=== PATIENT | male | born 1950 | race Caucasian/White ===

== ENCOUNTER 2024-01-05 07:29 | Inpatient (IN) ==
--- NOTE | 2023-12-28 09:03 | PAT Medication Instructions ---
Medication Instructions Date of Service December 28, 2023 Home Medications amlodipine 5 mg tablet 5 mg PO QAM ascorbic acid (vitamin C) 1,000 mg tablet (Vitamin C) 1 g PO QAM aspirin 81 mg capsule 81 mg PO HS atorvastatin 40 mg tablet 40 mg PO HS cholecalciferol (vitamin D3) 50 mcg (2,000 unit) capsule (Vitamin D3) 50 mcg PO HS finerenone 10 mg tablet (Kerendia) 10 mg PO QAM glimepiride 2 mg tablet 2 mg PO BID lisinopril 40 mg tablet 40 mg PO QAM metformin 850 mg tablet 850 mg PO BID Ocuvite Adult 50 Plus 1 cap PO DAILY ASK your prescriber and surgeon aspirin 81 mg capsule 81 mg PO HS finerenone 10 mg tablet (Kerendia) 10 mg PO QAM STOP taking 2 weeks before surgery (or as soon as possible if surgery is within 2 weeks) Ocuvite Adult 50 Plus 1 cap PO DAILY DO NOT take the morning of surgery ascorbic acid (vitamin C) 1,000 mg tablet (Vitamin C) 1 g PO QAM glimepiride 2 mg tablet 2 mg PO BID lisinopril 40 mg tablet 40 mg PO QAM metformin 850 mg tablet 850 mg PO BID Take morning of surgery With a small sip of water, OTHERWISE NOTHING TO EAT OR DRINK AFTER MIDNIGHT: amlodipine 5 mg tablet 5 mg PO QAM Take evening before surgery atorvastatin 40 mg tablet 40 mg PO HS cholecalciferol (vitamin D3) 50 mcg (2,000 unit) capsule (Vitamin D3) 50 mcg PO HS glimepiride 2 mg tablet 2 mg PO BID metformin 850 mg tablet 850 mg PO BID Other Notes If you have any questions please call us at [phone] or [phone] or [phone] or [phone]
--- NOTE | 2023-12-29 09:21 | Anesthesiology Consultation ---
Date of Service December 29, 2023 Assessment & Plan (1) Encounter for pre-operative examination: - Check BSG AM DOS - Infectious disease screening: Per assessment on 12/29/23: No known recent infectious disease contacts or current infectious disease symptoms. - S/P MRI lumbar spine (09/10/23): MAC at [facility] - PCP visit (12/28/23): "Cleared for back surgery provided preoperative testing is normal." > Preop testing -12/2023 done unremarkable. Chart Review Chart Review: Acceptable Risk for Surgery and Patient seen in Pre Admission Testing Teaching & Discussion Pre-Anesthesia Teaching/Discussion Notes: Instructed NPO after midnight before surgery,except medications with 15 cc of water. Medication instructions provided according to the PAT guidelines. History Surgery Operation Date: 01/05/24 11:25 Proposed Procedures p L1-L5 Decompression and Fusion, Possible L1-L2 - Reese Schaffer DO Height/Weight Height: 5 ft 11 in Weight: 114.6 kg Allergies Allergy/AdvReac Type Severity Reaction Status Date / Time No Known Allergies Allergy Verified 12/28/23 07:48 Medications Home Medications Medication Instructions Recorded Confirmed Last Taken amlodipine 5 mg tablet 5 mg PO QAM 08/26/23 12/28/23 09/10/23 04:30 ascorbic acid (vitamin C) 1,000 mg 1 g PO QAM 08/26/23 12/28/23 09/09/23 05:00 tablet (Vitamin C) aspirin 81 mg capsule 81 mg PO HS 08/26/23 12/28/23 09/09/23 17:00 atorvastatin 40 mg tablet 40 mg PO HS 08/26/23 12/28/23 09/09/23 17:00 cholecalciferol (vitamin D3) 50 50 mcg PO HS 08/26/23 12/28/23 09/09/23 17:00 mcg (2,000 unit) capsule (Vitamin D3) finerenone 10 mg tablet (Kerendia) 10 mg PO QAM 08/26/23 12/28/23 09/09/23 05:00 glimepiride 2 mg tablet 2 mg PO BID 08/26/23 12/28/23 09/09/23 17:00 lisinopril 40 mg tablet 40 mg PO QAM 08/26/23 12/28/23 09/10/23 04:30 metformin 850 mg tablet 850 mg PO BID 09/10/23 12/28/23 09/09/23 17:00 fwslpxks-kge-zmejs7 250 mg-dha 90 1 cap PO DAILY 09/10/23 12/28/23 09/09/23 17:00 mg-epa 160 pz-wfgz-cuoe-zeax capsule (Ocuvite Adult 50 Plus) Past Medical History Medical History Chronic kidney disease, stage 3 Follows with Carla OKEEFE and Dr. Sanchez/Dawna Chronic lower back pain Diabetes mellitus, type 2 History of depression History of spinal fracture L1-L4 (1989) Treated with bedrest x weeks, "healed"/no surgical intervention needed Hx of basal cell carcinoma Hyperlipidemia Hypertension Neurogenic claudication due to lumbar spinal stenosis Exercise / Class Metabolic Activity III < 4 Walking/Shop/Light housework (one FS: No CP, + SOB) Past Surgical History Surgical History History of amputation of toe x3 left toes History of bilateral knee replacement (2010) R/L History of cardiac cath (2006) Failed stress test > no stents History of carpal tunnel surgery of left wrist w/ulnar nerve decompression History of esophagogastroduodenoscopy (EGD) History of Mohs micrographic surgery for skin cancer Hx of bilateral cataract extraction (2021) Hx of colonoscopy Hx of wisdom tooth extraction Past Anesthesia History No Hx of Anesthesia Complications and No Family Hx of Anesthesia Complications History of PONV No Hx of PONV and No Hx of Motion Sickness Social History Smoking Status: Current every day smoker Smoking cigarettes per day: 1 PPD Do You Dip or Chew Tobacco: No Hx Alcohol Use: No Hx Substance Use: No substance use type: does not use Review of Systems Patient denies chest pain, shortness of breath, fever, chills, cough, wheezing, palpitations. Physical Exam Vital Signs BP 152/78 P 71 TEMP WNL SP02 95%RA RESP 18 Physical Full cervical extension range of motion. Full TMJ range of motion. TMD >3.5 finger breaths Mallampati Score 3 Dentition: + missing teeth (sides/molars), upper front right crown, right lower side/left upper side "broken" Lungs: clear throughout to auscultation Cardiac: regular rate and rhythm, no murmurs noted Spine: normal Carotid arteries: negative bruit Extremities: no LE edema Thick neck Lab Results Anesthesia Preop Results Results Anesthesia Widget: PT 10.2 Seconds (9.0-12.0) 12/29/23 PTT 29 Seconds (21-31) 12/29/23 INR 0.9 (0.9-1.1) 12/29/23 Urine Color Yellow 12/29/23 Urine Appearance Clear (Clear) 12/29/23 Urine pH 5.5 (4.5-7.5) 12/29/23 Urine Specific [place] 1.024 (1.000-1.030) 12/29/23 Urine Protein 4+ (Negative) H 12/29/23 Urine Glucose (UA) Negative (Negative) 12/29/23 Urine Ketones Trace (Negative) H 12/29/23 Urine Blood Negative (Negative) 12/29/23 Urine Nitrite Negative (Negative) 12/29/23 Urine Bilirubin Negative (Negative) 12/29/23 Urine Urobilinogen Negative (Negative) 12/29/23 Urine Leukocyte Esterase Negative (Negative) 12/29/23 Urine WBC (Auto) 0-5 /hpf (0-5) 12/29/23 Urine RBC (Auto) 0-2 /hpf (0-2) 12/29/23 Urine Hyaline Casts (Auto) 0-2 /lpf (0-2) 12/29/23 Urine Epithelial Cells (Auto) 0-2 /hpf (0-2) 12/29/23 Urine Bacteria (Auto) None Seen (None Seen) 12/29/23 Blood Type O Negative 12/29/23 Antibody Screen NEGATIVE 12/29/23 Testing Laboratory Results 12/10/23 WBC 10.49 H/H 12.5/37.0 PLATELETS 270 SODIUM 138 POTASSIUM 4.4 CHLORIDE 108 CO2 25.4 BUN 24.7 CREATININE 1.33 GLUCOSE 146 A1C 6.4% Electrocardiogram Date: 12/29/23 NSR with sinus arrhythmia at 72bpm. Low voltage QRS. Septal infarct, age undetermined. No significant change compared to 09/25/2010 per deputy sheriff/investigator comparison. Chest X-Ray Date: 12/29/23 FINDINGS: PA and lateral chest radiographs are compared to study dated 09/25/2010. The heart is top normal in size noting atherosclerotic calcification of the thoracic aorta. There is mild bibasilar atelectasis. The lungs and pleural spaces are clear. There is no pneumothorax. The skeletal structures are osteopenic. There is chronic deformity of the right-sided ribs. IMPRESSION: No active disease in the chest.
[~2024-01-05 07:29] MED LIST: ATROPINE SULFATE 0.1 MG/ML 10ML SYR IV PRN; HYDROmorphone INJ 2 MG/ML SYR/VIAL IV PRN; ONDANSETRON INJ 2 MG/ML 2 ML VIAL IV PRN; ePHEDrine sulfate 50 MG/ML AMP IV PRN
[2024-01-05] MEDS: GABAPENTIN 300 MG CAP PO SCH (08:10)
[2024-01-05] MEDS: LR 60ML/HR IV SCH (08:11)
[2024-01-05] MEDS: CeleBREX 200 MG CAP PO SCH (08:11)
[2024-01-05] MEDS: LR 15ML/HR IV SCH (08:50)
[2024-01-05] MEDS ORDERED: fentaNYL citrate PF 100 MCG/2 ML VIAL ONE ×2 (08:53→11:00)
--- NOTE | 2024-01-05 08:58 | History & Physical Bridge Note ---
Date of Service January 05, 2024 History & Physical Bridge Note I have examined the patient, reviewed the History & Physical and in the interval since the performance of the History & Physical I have noted the following changes of clinical significance: no changes noted
--- NOTE | 2024-01-05 08:59 | History & Physical Report ---
Date of Service January 05, 2024 Assessment & Plan (1) Neurogenic claudication due to lumbar spinal stenosis: Plan: L1-L5 decompression and fusion possible L1-L2 History of Present Illness Chief Complaint: Back and bilateral leg pain Primary Care Provider: Rolando Moura DO This is a 73-year-old male who presents with chronic persistent back and leg pain after failing course of nonoperative care is here for surgical invention. Allergies Allergy/AdvReac Type Severity Reaction Status Date / Time No Known Allergies Allergy Verified 01/05/24 08:05 Home Medications Medication Instructions Recorded Confirmed Type amlodipine 5 mg tablet 5 mg PO QAM 08/26/23 01/05/24 History ascorbic acid (vitamin C) 1,000 mg 1 g PO QAM 08/26/23 01/05/24 History tablet (Vitamin C) aspirin 81 mg capsule 81 mg PO HS 08/26/23 01/05/24 History atorvastatin 40 mg tablet 40 mg PO HS 08/26/23 01/05/24 History cholecalciferol (vitamin D3) 50 50 mcg PO HS 08/26/23 01/05/24 History mcg (2,000 unit) capsule (Vitamin D3) finerenone 10 mg tablet (Kerendia) 10 mg PO QAM 08/26/23 01/05/24 History glimepiride 2 mg tablet 2 mg PO BID 08/26/23 01/05/24 History lisinopril 40 mg tablet 40 mg PO QAM 08/26/23 01/05/24 History metformin 850 mg tablet 850 mg PO BID 09/10/23 01/05/24 History pwxdzufn-ztd- 250 mg-dha 90 1 cap PO DAILY 09/10/23 01/05/24 History mg-epa 160 vr-jedw-yidp-zeax capsule (Ocuvite Adult 50 Plus) Past Med/Surg History Problem List Neurogenic claudication due to lumbar spinal stenosis Encounter for pre-operative examination Medical History Chronic kidney disease, stage 3 Follows with Carla OKEEFE and Dr. Sanchez/Dawna Chronic lower back pain Diabetes mellitus, type 2 History of depression History of spinal fracture L1-L4 (1989) Treated with bedrest x weeks, "healed"/no surgical intervention needed Hx of basal cell carcinoma Hyperlipidemia Hypertension Neurogenic claudication due to lumbar spinal stenosis Surgical History History of amputation of toe x3 left toes History of bilateral knee replacement (2010) R/L History of cardiac cath (2006) Failed stress test > no stents History of carpal tunnel surgery of left wrist w/ulnar nerve decompression History of esophagogastroduodenoscopy (EGD) History of Mohs micrographic surgery for skin cancer Hx of bilateral cataract extraction (2021) Hx of colonoscopy Hx of wisdom tooth extraction Social History Smoking Status: Current every day smoker Tobacco Type: Cigarettes Cigarettes Per Day: 1 PPD; Second Hand Exposure: No; Do You Dip or Chew Tobacco: No; Tobacco Cessation Education Requested by Patient: No Hx Alcohol Use: No Hx Substance Use: No Preferred Language: Niuean Communication Ability: Effective Scrap Cutter Required: No Beliefs That Will Affect Care: None Current Living Situation: Spouse Other Information That Helps Us Care for You: No Feels Safe at Home: Yes Safety Concerns: Feels Safe At This Time Assistive Devices: Glasses Physical Exam Physical Exam: Patient is alert and oriented heart regular in rhythm lungs clear Results & Data Results & Data Vital Signs (Past 12 Hours) Vital Signs Temp Pulse Resp BP Pulse Ox O2 Del Method 01/05/24 08:11 Room Air 01/05/24 07:58 36.7 C 73 20 168/74 H 97 Room Air
[2024-01-05] MEDS: ceFAZolin 2000MG 2,000 MG/15 ML SYR IV SCH ×2 (09:35→17:12)
[2024-01-05] MEDS: BUPIVACAINE/EPINEPHRINE 0.25% 1:200,000 30 ML VIAL ONE (10:25)
[2024-01-05] MEDS ORDERED: DEXAMETHASONE SOD INJ 4 MG/ML VIAL ONE (10:32)
[2024-01-05] MEDS ORDERED: ROCURONIUM BROMIDE 10 MG/ML 5 ML VIAL IV ONE (10:32)
[2024-01-05] MEDS ORDERED: ONDANSETRON INJ 2 MG/ML 2 ML VIAL ONE (10:32)
[2024-01-05] MEDS ORDERED: LIDOCAINE 2% 2 ML VIAL/AMP(20MG/ML) INFIL ONE (10:32)
[2024-01-05] MEDS ORDERED: PROPOFOL IV EMULSION 10 MG/ML 20 ML VIAL IV ONE (10:32)
[2024-01-05] MEDS ORDERED: ePHEDrine sulfate 50 MG/ML AMP ONE (10:35)
[2024-01-05] MEDS: FLOSEAL HEMOSTATIC MATRIX 10ML TOP ONE (11:43)
[2024-01-05] MEDS ORDERED: SUGAMMADEX SODIUM 200 MG/2 ML VIAL IV ONE (11:46)
[2024-01-05] MEDS: ceFAZolin 330 MG/ML 1 GM VIAL ONE (11:50)
--- NOTE | 2024-01-05 11:57 | Operative Report ---
Post Operative Report Pre & Post Diagnosis Operation Date: 01/05/24 09:35 Pre-Op Diagnosis: Neurogenic claudication due to lumbar spinal stenosis Lumbar disc herniation Post-Op Diagnosis: same I identified the patient and participated in the time-out.: Yes Procedure Operation Date: 01/05/24 09:35 Procedure: #1 lumbar decompression with bilateral medial facetectomies and foraminotomies L1-L2, L2-L3, L3-L4 and L4-L5. #2 posterior spinal fusion L1-L2. #3 placed posterior instrumentation L1-L2. #4 interbody fusion L1-L2. #5 history Spira 9 x 26 mm cage at L1-L2. #6 placement locally harvested morselized autograft in the posterior gutters. #7 placement infuse collagen sponge combined with Koros bone graft in the posterior lateral gutters and Morpheus interbody space. Surgeon Reese Schaffer, DO Staffing And Scheduling Coordinator Farideh Connell Estimated Blood Loss 550 Findings See Below The patient is 5 foot 11 weighing over 113 kg with a BMI in excess of 34. Patient's body was did contribute to significant technical difficulty with positioning exposure and the procedure itself adding at least 50% increased operative time. Specimens None Indications This is a 73-year-old male presents above-mentioned diagnosis of failed course of nonoperative care is here for surgical invention. Description of Procedure Patient was met with identified informed consent obtained. Patient was then taken to the operative suite underwent patient placed in a prone position on the Adriano table on top of the Ilir frame. All bony prominences well-padded eyes inspected to ensure no external pressure placed upon the. This point the lumbar spine was prepped and draped in a sterile fashion. Sharp dissection with the assistance of Bovie cautery performed down to and exposing the lamina and facets at L1-L2 L3-L4-L5 bilaterally. I then performed a complete laminectomy of L4 including bilateral medial facetectomies and foraminotomies followed by laminectomy of L3 with bilateral medial facetectomies and foraminotomies followed by L2 with bilateral medial facetectomies and foraminotomies and lastly L1 with bilateral medial facetectomies and foraminotomies addressing severe spinal stenosis as well as a massive disc herniation at L1-L2. Pedicle screws were then placed at L1-L2 bilaterally with assistance of fluoroscopy purposes nando placed. A complete facetectomy was then performed on the right and by way the transforaminal portion right a discectomy of L1-L2 was performed endplates guided to subcortical bleeding bone and a 9 x 26 mm Spira cage filled with Morpheus bone graft tapped in position. The rods then compressed locked in final position bilaterally. The transition processes of L1-L2 burred to subcortical bleeding bone. Infuse collagen sponge combined with Koros and locally harvested morselized graft placed in posterior gutters. 15 round GERMAN drain inserted. The incision was then closed with 1 Vicryl the fascia 2-0 Vicryl subcutaneously and 4 Monocryl for fascial closure. Steri-Strips sterile dressing placed. Patient waken taken to PACU in stable condition. Please note spinal cord monitoring was utilized at the procedure no changes noted. Farideh Connell was present out the entire surgeon while the patient positioning complex portion of the surgery and final skin closure. Im ordering 20 grams of Triple [place] Collagen Powder ([id number] [id number]) to treat an incision wound that was caused by a spine procedure. The incision is approximately 2 cm(W) x 4 cm(L) into the joint (D) in size and is a full thickness wound. Triple [place] collagen comes in 1 gram packets so 20 packets were ordered. Given the size of the wound, with light to moderate exudate I chose to order a 20 day supply. The patient will be provided instructions for proper application of the collagen wound kit. The patient will be asked to apply the collagen powder daily and then cover it with sterile dressings dispensed. Collagen was selected as I expect the collagen to attract monocytes and fibroblasts, act as a sacrificial substrate for MMPs, and ultimately proved a matrix for tissue and vessel growth. The collagen will act as a primary dressing in this scenario. It is medically necessary for proper healing of these wounds to improve bioavailability and contact with each wound surface, this is also to help prevent infection of wounds and promote healing ultimately leading to a better healing outcome and limit the risk of infection. I attest to the content of the Intraoperative Record and any orders documented therein. Any exceptions are noted below.
[2024-01-05] MEDS: HYDROmorphone INJ 0.5 MG/0.5 ML SYR ONE (12:44)
[2024-01-05] MEDS ORDERED: ATROPINE SULFATE 0.1 MG/ML 10ML SYR IV PRN (12:47)
[2024-01-05] MEDS ORDERED: ONDANSETRON INJ 2 MG/ML 2 ML VIAL IV PRN ×2 (12:47→14:07)
[2024-01-05] MEDS ORDERED: ePHEDrine sulfate 50 MG/ML AMP IV PRN (12:47)
--- NOTE | 2024-01-05 12:56 | Anesthesiology Progress Note ---
Date of Service January 05, 2024 Anesthesia Post Procedure Vital Signs Vital Signs: Temp Pulse Resp BP Pulse Ox O2 Del Method 01/05/24 08:11 Room Air 01/05/24 07:58 36.7 C 73 20 168/74 H 97 Room Air Pain Intensity Bilateral Lower Back: Pain Intensity: 1 Transfer of Care Handoff Completed per policy Notes Mental Status: alert / awake / arousable and participated in evaluation Nausea / Vomiting: adequately controlled Pain: adequately controlled Airway Patency, RR, SpO2: stable & adequate BP & HR: stable & adequate Hydration State: stable & adequate Anesthetic Complications: no major complications apparent and Pt Satisfied with anesthetic care
[2024-01-05] MEDS: HYDROmorphone INJ 2 MG/ML SYR/VIAL IV PRN (13:01)
[2024-01-05] MEDS ORDERED: LORazepam 0.5 MG in SYRINGE 0.25 ML IV PRN (14:07)
[2024-01-05] MEDS ORDERED: diphenhydrAMINE Capsule 25 MG CAP PO PRN (14:07)
[2024-01-05] MEDS ORDERED: METOCLOPRAMIDE HCL INJ 5 MG/ML 2 ML VIAL IV PRN (14:07)
[2024-01-05] MEDS ORDERED: traMADol HCL 50 MG TABLET PO PRN (14:07)
[2024-01-05] MEDS ORDERED: ONDANSETRON 4 MG OD TAB PO PRN (14:07)
[2024-01-05] MEDS ORDERED: ACETAMINOPHEN 500 MG TAB PO PRN (14:07)
[2024-01-05] MEDS ORDERED: bisacodyL 10 MG SUPP PR PRN (14:07)
[2024-01-05] MEDS ORDERED: HYDROmorphone INJ 1 MG/ML SYRINGE IV PRN (14:07)
[2024-01-05] MEDS ORDERED: PROMETHAZINE HCL 12.5 MG in SODIUM CHLORIDE 0.9% 50 ML IV PRN (14:07)
[2024-01-05] MEDS ORDERED: SOD PHOSPHATE/SOD BIPHOSPHATE ENEMA 132 ML BTL PR PRN (14:07)
[2024-01-05] MEDS ORDERED: HYDROmorphone INJ 0.5 MG/0.5 ML SYR IV PRN (14:07)
[2024-01-05] MEDS ORDERED: DO NOT ADMINISTER FLU VACCINE PRN (14:07)
[2024-01-05] MEDS ORDERED: DO NOT ADMINISTER PNEUMOCOCCAL VACCINE PRN (14:07)
[2024-01-05] MEDS ORDERED: ALUMINUM/MAGNESIUM SUSP 30 ML UDC PO PRN (14:07)
[2024-01-05] MEDS ORDERED: ACETAMINOPHEN 1,000 MG/100 ML VIAL IV PRN (14:07)
[2024-01-05] MEDS ORDERED: MAGNESIUM HYDROXIDE SUSP 30 ML UDC PO PRN (14:07)
[2024-01-05] MEDS ORDERED: FAMOTIDINE 20 MG TAB PO PRN (14:07)
[2024-01-05] MEDS ORDERED: LORazepam 0.5 MG TAB PO PRN (14:07)
[2024-01-05] MEDS ORDERED: NALOXONE HCL 0.4 MG/1 ML VIAL/CARP IV PRN (14:07)
[2024-01-05] MEDS ORDERED: hydrOXYzine HCl 25 MG TAB PO PRN (14:07)
[2024-01-05] MEDS ORDERED: PHARMACY GLYCEMIC MGMT CONSULT PRN (14:10)
[2024-01-05] MEDS: LANTUS PER UNIT CHARGE SC STA (14:26)
[2024-01-05] MEDS: LACTATED RINGER'S 1,000 ML IV SCH (14:27)
[2024-01-05] MEDS: INSULIN ASPART PER UNIT CHARGE SC SCH (14:29)
[2024-01-05] MEDS ORDERED: DEXTROSE 50% 50 ML SYRINGE IV PRN (14:30)
[2024-01-05] MEDS ORDERED: GLUCOSE 10 TAB/TUBE PO PRN (14:30)
[2024-01-05] MEDS ORDERED: CARBOHYDRATES FOR HYPOGLYCEMIA PO PRN (14:30)
[2024-01-05] MEDS ORDERED: GLUCOSE 40% GEL 15 GM TUBE PO PRN (14:30)
[2024-01-05] MEDS ORDERED: GLUCAGON FOR INJ 1 MG VIAL IM PRN (14:30)
--- NOTE | 2024-01-05 14:30 | Pharmacy Report ---
Pharmacy Glycemic Short Note 2 - Date of Service January 05, 2024 - Glycemic Short BSG Results (Last 24 hours): 01/05/24 01/05/24 07:54 12:14 POC Glucose 127 H 236 H OUTPATIENT ANTIDIABETIC REGIMEN: * Glimepiride 2 mg PO BID * Metformin 850 mg PO BID * HbA1c: 6.4% (12/29/23) ASSESSMENT: * 73 yo M admitted on 01/05/24 postoperatively following a spinal surgery with Dr. Schaffer. Pharmacy has been consulted to assist with inpatient glycemic management. Patient is a Type 2 diabetic as an outpatient. Please refer to outpatient regimen and most recent HbA1c above. * BSGs today have been 127-236 mg/dL. Appears to have received 4 mg IV Dexamethasone in the OR. Ordered 6 mg IV dexamethasone daily x 3 days starting tomorrow. Ordered a T2DM diet, will follow to see if patient tolerates. * Will start Novolog based on weight/stress of 3 with a one time basal dose of 0.2 units/kg. Reassess basal in the AM. PLAN FOR INPATIENT GLYCEMIC CONTROL: * Hold outpatient oral diabetes medications * Basal insulin * Lantus 25 units SC x 1 now stat * Bolus insulin * NovoLog per scale ACHS or Q6hrs while NPO * Goal Range: Low 110 mg/dL - High 140 mg/dL * Correction Factor: 15 mg/dL/unit * Nutritional / Prandial insulin per carb ratio of 1 unit per 5 grams CHO consumed
--- NOTE | 2024-01-05 14:50 | Fluoroscopy Report ---
FL lumbar spine 2-3V CLINICAL HISTORY: L1-L5 DECOMPRESSION AND FUSION POSSILBE L1-L2 TECHNIQUE: 2 views were obtained with the C-arm in the OR with the above procedure. Total fluoroscopy time was 29.3 seconds. Radiation dose was 26.70 mGy. Comparison: Comparison is made to MRI lumbar spine 09/10/2023 FINDINGS/IMPRESSION: Intraoperative images were obtained of L1-L2 decompression fusion. Please correlate with intraoperative fluoroscopy and operative report. ACT 112: Negative or not required by law. Electronically signed by: Sammy Mcdermott M.D. 01/05/2024 2:49 PM
--- NOTE | 2024-01-05 15:01 | Hospitalist Consultation ---
Date of Consultation January 05, 2024 History of Present Illness Reason for Consultation: Post-Operative Medical Management Requesting Physician: Reese Schaffer DO Attending Physician: Reese Schaffer DO Allergies Allergy/AdvReac Type Severity Reaction Status Date / Time No Known Allergies Allergy Verified 01/05/24 08:05 Home Medications Medication Instructions Recorded Confirmed Type amlodipine 5 mg tablet 5 mg PO QAM 08/26/23 01/05/24 History ascorbic acid (vitamin C) 1,000 mg 1 g PO QAM 08/26/23 01/05/24 History tablet (Vitamin C) aspirin 81 mg capsule 81 mg PO HS 08/26/23 01/05/24 History atorvastatin 40 mg tablet 40 mg PO HS 08/26/23 01/05/24 History cholecalciferol (vitamin D3) 50 50 mcg PO HS 08/26/23 01/05/24 History mcg (2,000 unit) capsule (Vitamin D3) finerenone 10 mg tablet (Kerendia) 10 mg PO QAM 08/26/23 01/05/24 History glimepiride 2 mg tablet 2 mg PO BID 08/26/23 01/05/24 History lisinopril 40 mg tablet 40 mg PO QAM 08/26/23 01/05/24 History metformin 850 mg tablet 850 mg PO BID 09/10/23 01/05/24 History abzcrztk-tel- 250 mg-dha 90 1 cap PO DAILY 09/10/23 01/05/24 History mg-epa 160 rn-xhos-bhjy-zeax capsule (Ocuvite Adult 50 Plus) oxycodone 5 mg tablet 5 mg PO Q6H PRN pain #30 tabs 01/05/24 Rx tramadol 50 mg tablet 50 mg PO Q6H PRN pain, moderate 01/05/24 Rx #30 tabs Patient History Medical History Chronic kidney disease, stage 3 Follows with Carla OKEEFE and Dr. Sanchez/Dawna Chronic lower back pain Diabetes mellitus, type 2 History of depression History of spinal fracture L1-L4 (1989) Treated with bedrest x weeks, "healed"/no surgical intervention needed Hx of basal cell carcinoma Hyperlipidemia Hypertension Neurogenic claudication due to lumbar spinal stenosis Surgical History History of amputation of toe x3 left toes History of bilateral knee replacement (2010) R/L History of cardiac cath (2006) Failed stress test > no stents History of carpal tunnel surgery of left wrist w/ulnar nerve decompression History of esophagogastroduodenoscopy (EGD) History of Mohs micrographic surgery for skin cancer Hx of bilateral cataract extraction (2021) Hx of colonoscopy Hx of wisdom tooth extraction Social History Smoking Status: Current every day smoker Tobacco Type: Cigarettes Cigarettes Per Day: 1 PPD; Second Hand Exposure: No; Do You Dip or Chew Tobacco: No; Tobacco Cessation Education Requested by Patient: No Hx Alcohol Use: No Hx Substance Use: No Preferred Language: Slovenian Communication Ability: Effective 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 Beliefs That Will Affect Care: None Current Living Situation: Spouse Other Information That Helps Us Care for You: No Feels Safe at Home: Yes Safety Concerns: Feels Safe At This Time Assistive Devices: Glasses Results & Data Results & Data Vital Signs (Past 12 Hours) Vital Signs Temp Pulse Pulse Resp BP Pulse Ox O2 Del Method 01/05/24 14:32 74 18 153/76 H 98 Nasal Cannula 01/05/24 14:07 36.4 C L 72 18 150/74 H 98 Nasal Cannula 01/05/24 13:45 69 16 147/65 H 97 Room Air 01/05/24 13:35 74 14 159/66 H 92 Room Air 01/05/24 13:25 36.5 C 67 14 152/62 H 94 Room Air 01/05/24 13:15 67 13 158/64 H 97 Nasal Cannula 01/05/24 13:05 66 14 157/68 H 96 Nasal Cannula 01/05/24 12:55 63 15 162/63 H 96 Nasal Cannula 01/05/24 12:45 67 20 169/72 H 98 Nasal Cannula 01/05/24 12:35 65 20 173/63 H 97 Nasal Cannula 01/05/24 12:25 66 16 159/85 H 97 Nasal Cannula 01/05/24 12:15 78 12 155/67 H 96 Nasal Cannula 01/05/24 12:09 36.8 C 80 14 192/72 H 94 Nasal Cannula 01/05/24 08:11 Room Air 01/05/24 07:58 36.7 C 73 20 168/74 H 97 Room Air O2 Flow Rate 01/05/24 14:32 2 01/05/24 14:07 2 01/05/24 13:45 01/05/24 13:35 01/05/24 13:25 01/05/24 13:15 2 01/05/24 13:05 2 01/05/24 12:55 2 01/05/24 12:45 2 01/05/24 12:35 2 01/05/24 12:25 4 01/05/24 12:15 4 01/05/24 12:09 4 01/05/24 08:11 01/05/24 07:58
--- NOTE | 2024-01-05 15:25 | Consultation ---
Date of Consultation January 05, 2024 Assessment & Plan (1) Neurogenic claudication due to lumbar spinal stenosis: (2) Diabetes mellitus, type 2: (3) Hyperlipidemia: (4) Hypertension: Plan Neurogenic claudication with lumbar spinal stenosis s/p L1-L5 decompression and fusion of L1-2 POD 0- further management including DVT ppx, diet, activities, pain management and disposition per primary team DM-2- Hold home antidiabetics. Glycemic pharmacist consulted by primary team. HTN- continue norvasc and lisinopril. Follow labs in am Tobacco abuse- recommended quitting. Continue nicoderm patch CKD- follow up labs in am DVT ppx- per primary team Dispo- per primary team Time spent- 50 mins History of Present Illness Requesting Physician: Dr Schaffer Reason for Consultation: Post op medical management Attending Physician: Reese Schaffer, DO History of Present Illness 73 year old male with h/o HTN, DM, Tobacco abuse, CKD, lumbar spinal stenosis who underwent L1-L5 decmpression and fusion by Dr Schaffer today. Hospitalist service was consulted for post operative management. Patient was seen and examined at bedside. States pain is controlled. No N/V. No fever or chills. No CP or SOB. Tolerating oral intake without issues. States he smokes upto 1 ppd and asking for nicotine patch. Does not drink alcohol. Denies any cardio pulmonary issues. Denies any history of VTE or bleeding. Tried to verify the medications but he did not know them and deferred to his . I called his over the phone but I was unable to reach. Allergies Allergy/AdvReac Type Severity Reaction Status Date / Time No Known Allergies Allergy Verified 01/05/24 08:05 Home Medications Medication Instructions Recorded Confirmed Type amlodipine 5 mg tablet 5 mg PO QAM 08/26/23 01/05/24 History ascorbic acid (vitamin C) 1,000 mg 1 g PO QAM 08/26/23 01/05/24 History tablet (Vitamin C) aspirin 81 mg capsule 81 mg PO HS 08/26/23 01/05/24 History atorvastatin 40 mg tablet 40 mg PO HS 08/26/23 01/05/24 History cholecalciferol (vitamin D3) 50 50 mcg PO HS 08/26/23 01/05/24 History mcg (2,000 unit) capsule (Vitamin D3) finerenone 10 mg tablet (Kerendia) 10 mg PO QAM 08/26/23 01/05/24 History glimepiride 2 mg tablet 2 mg PO BID 08/26/23 01/05/24 History lisinopril 40 mg tablet 40 mg PO QAM 08/26/23 01/05/24 History metformin 850 mg tablet 850 mg PO BID 09/10/23 01/05/24 History [id number] 250 mg-dha 90 1 cap PO DAILY 09/10/23 01/05/24 History mg-epa 160 [id number] capsule (Ocuvite Adult 50 Plus) oxycodone 5 mg tablet 5 mg PO Q6H PRN pain #30 tabs 01/05/24 Rx tramadol 50 mg tablet 50 mg PO Q6H PRN pain, moderate 01/05/24 Rx #30 tabs Patient History Medical History Chronic lower back pain Neurogenic claudication due to lumbar spinal stenosis History of spinal fracture L1-L4 (1989) Treated with bedrest x weeks, "healed"/no surgical intervention needed Chronic kidney disease, stage 3 Follows with Carla [facility]EEFE and Dr. Sanchez/Dawna Hx of basal cell carcinoma History of depression Diabetes mellitus, type 2 Hyperlipidemia Hypertension Surgical History History of bilateral knee replacement (2010) R/L History of Mohs micrographic surgery for skin cancer History of carpal tunnel surgery of left wrist w/ulnar nerve decompression History of amputation of toe x3 left toes History of esophagogastroduodenoscopy (EGD) Hx of colonoscopy Hx of bilateral cataract extraction (2021) Hx of wisdom tooth extraction History of cardiac cath (2006) Failed stress test > no stents Social History Smoking Status: Current every day smoker Tobacco Type: Cigarettes Cigarettes Per Day: 1 PPD; Second Hand Exposure: No; Do You Dip or Chew Tobacco: No; Tobacco Cessation Education Requested by Patient: No Hx Alcohol Use: No Hx Substance Use: No Preferred Language: Polish Communication Ability: Effective Senior Java Web Developer Required: No Beliefs That Will Affect Care: None Current Living Situation: Spouse Other Information That Helps Us Care for You: No Feels Safe at Home: Yes Safety Concerns: Feels Safe At This Time Assistive Devices: Glasses Review of Systems Review of Systems: All systems reviewed & are unremarkable except as noted in Subjective Physical Exam Physical Exam: General: Lying comfortably in bed, not in distress, on room air HEENT: EOMI, LEOLA, MMM Chest: Clear breath sounds bilaterally, no wheezes or crackles CVS: Regular rate and rhythm, normal heart sounds, no murmur Abdomen: Soft, non tender, not distended, normal bowel sounds Neuro: Awake, alert, oriented, conversing well, non focal Extremities: No edema Skin: Incision site covered with dressing, GERMAN drain with sanguineous output Raymundo with clear urine Results & Data Vital Signs (Past 12 Hours) Vital Signs Temp Pulse Pulse Resp BP Pulse Ox O2 Del Method 01/05/24 15:00 36.4 C L 73 16 154/73 H 97 Nasal Cannula 01/05/24 14:32 74 18 153/76 H 98 Nasal Cannula 01/05/24 14:07 36.4 C L 72 18 150/74 H 98 Nasal Cannula 01/05/24 13:45 69 16 147/65 H 97 Room Air 01/05/24 13:35 74 14 159/66 H 92 Room Air 01/05/24 13:25 36.5 C 67 14 152/62 H 94 Room Air 01/05/24 13:15 67 13 158/64 H 97 Nasal Cannula 01/05/24 13:05 66 14 157/68 H 96 Nasal Cannula 01/05/24 12:55 63 15 162/63 H 96 Nasal Cannula 01/05/24 12:45 67 20 169/72 H 98 Nasal Cannula 01/05/24 12:35 65 20 173/63 H 97 Nasal Cannula 01/05/24 12:25 66 16 159/85 H 97 Nasal Cannula 01/05/24 12:15 78 12 155/67 H 96 Nasal Cannula 01/05/24 12:09 36.8 C 80 14 192/72 H 94 Nasal Cannula 01/05/24 08:11 Room Air 01/05/24 07:58 36.7 C 73 20 168/74 H 97 Room Air O2 Flow Rate 01/05/24 15:00 1 01/05/24 14:32 2 01/05/24 14:07 2 01/05/24 13:45 01/05/24 13:35 01/05/24 13:25 01/05/24 13:15 2 01/05/24 13:05 2 01/05/24 12:55 2 01/05/24 12:45 2 01/05/24 12:35 2 01/05/24 12:25 4 01/05/24 12:15 4 01/05/24 12:09 4 01/05/24 08:11 01/05/24 07:58
[2024-01-05] MEDS ORDERED: hydrALAZINE HCL 20 MG/ML VIAL IV PRN (16:42)
[2024-01-05] MEDS: NICOTINE 21 MG/24 HR TDSY TD SCH (17:14)
[2024-01-05] MEDS ORDERED: GLIMEPIRIDE 2 MG TAB PO SCH (21:00)
[2024-01-05] MEDS ORDERED: metFORMIN HCL 850 MG TAB PO SCH (21:00)
[2024-01-05] MEDS: CHOLECALCIFEROL 25 MCG (1000 UNITS) TAB PO SCH (21:33)
[2024-01-05] MEDS: DOCUSATE SODIUM/SENNA 50/8.6MG TAB PO SCH (21:33)
[2024-01-05] MEDS: ASPIRIN 81 MG ECTAB PO SCH (21:33)
[2024-01-05] MEDS: ATORVASTATIN 40 MG TAB PO SCH (21:33)
[2024-01-06] MEDS: INSULIN ASPART PER UNIT CHARGE SC SCH (00:35)
[2024-01-06] MEDS: oxyCODONE HCL IR 5 MG TAB (IMMEDIATE RELEASE) PO PRN (02:31)
[2024-01-06] MEDS: INSULIN ASPART PER UNIT CHARGE SC ONE (04:19)
[2024-01-06 06:05] LABS: Basophils # (auto) 0.04 K/uL (0.00-0.20); Basophils % (auto) 0.3 %; Hematocrit (blood only) 29.3 % (42.0-52.0); Hemoglobin 10.1 g/dl (14.0-18.0); Immature Granulocytes # (auto) 0.09 K/uL (0.01-0.20); Immature Granulocytes % (auto) 0.6 %; Lymphocytes # (auto) 2.07 K/uL (1.20-3.40); Lymphocytes % (auto) 13.8 %; Mean Corpuscular Hemoglobin 30.1 pg (25.0-34.0); Mean Corpuscular Hgb Conc 34.5 g/dL (32.0-36.0); Mean Corpuscular Volume 87.2 fL (80.0-100.0); Monocytes % (auto) 9.3 %; Neutrophils # (auto) 11.38 K/uL (1.40-6.50); Platelet Count 229 K/uL (130-400); RDW Coefficient of Variation 13.8 % (11.5-14.5); RDW Standard Deviation 43.8 fL (36.4-46.3); Red Blood Count 3.36 M/uL (4.70-6.10); White Blood Count 14.98 K/ul (4.8-10.8)
[2024-01-06 06:23] LABS: BUN Creatinine Ratio 25.8 (10-20); Calcium 8.7 mg/dl (8.6-10.3); Creatinine Clr Calc Pharmacy 62.9 ml/min; Est GFR (African American) 61.2 ml/min; Est GFR (Non-African American) 52.8 ml/min; Potassium 4.4 mmol/L (3.5-5.1)
[2024-01-06] MEDS: POLYETHYLENE (MIRALAX) 17 GM PACK PO SCH (06:30)
--- NOTE | 2024-01-06 09:23 | Orthopedic Progress Note ---
Date of Service January 06, 2024 Assessment & Plan (1) Neurogenic claudication due to lumbar spinal stenosis: Plan: At this time continue physical therapy monitor his GERMAN operatively discharge home in the next few days. Admission and Anticipated Discharge Date Admission Date: January 05, 2024 Subjective Back pain controlled leg symptoms improved Physical Exam Physical Exam: Patient is in the chair at the bedside. Is constricted testing. Appears comfortable. Results & Data Vital Signs (Past 12 Hours) Vital Signs Temp Pulse Resp BP Pulse Ox O2 Del Method 01/06/24 07:43 98 Room Air 01/06/24 07:40 Room Air 01/06/24 07:22 36.3 C L 72 16 148/75 H 88 L Room Air 01/06/24 04:25 36.4 C L 74 18 148/67 H 96 Room Air 01/06/24 00:11 36.6 C 73 16 129/70 95 Room Air Queries Orthopedic Spine Obesity: Yes
[2024-01-06] MEDS: LANTUS PER UNIT CHARGE SC ONE (09:53)
[2024-01-06] MEDS: amLODIPine BESYLATE 5 MG TAB PO SCH (09:54)
[2024-01-06] MEDS: ASCORBIC ACID 500 MG TAB PO SCH (09:54)
[2024-01-06] MEDS: lisinopril 40 MG TAB PO SCH (09:54)
[2024-01-06] MEDS: CEROVITE ADV FORMULA TAB PO SCH (09:55)
[2024-01-06] MEDS: dexAMETHasone 6 MG in SYRINGE 0 ML IV SCH (09:55)
--- NOTE | 2024-01-06 13:41 | Pharmacy Report ---
Pharmacy Glycemic Short Note 2 - Date of Service January 06, 2024 - Glycemic Short BSG Results (Last 24 hours): 01/05/24 01/05/24 01/05/24 16:45 20:29 20:30 Glucose POC Glucose 300 H 315 H* 297 H 01/06/24 01/06/24 01/06/24 00:04 00:06 04:15 Glucose POC Glucose 311 H* 312 H* 207 H 01/06/24 01/06/24 01/06/24 05:38 07:26 11:29 Glucose 168 H POC Glucose 159 H 223 H OUTPATIENT ANTIDIABETIC REGIMEN: * Glimepiride 2 mg PO BID * Metformin 850 mg PO BID * HbA1c: 6.4% (12/29/23) ASSESSMENT: 01/06/24 * Despite aggressive insulin initiation on admission, patient's BSGs have been elevated. Pt appears to be very sensitive to steroid-induced hyperglycemia. * Pt provided with another dose of Lantus this morning. Novolog parameters were adjusted to provide additional carb coverage. * Steroids have the most profound effect on post-prandial BSGs, which has certainly been evident in this patient. * Will continue to follow and adjust regimen as indicated. * Anticipate that insulin needs will decrease when steroids are discontinued. 01/05/24 * 73 yo M admitted on 01/05/24 postoperatively following a spinal surgery with Dr. Schaffer. Pharmacy has been consulted to assist with inpatient glycemic management. Patient is a Type 2 diabetic as an outpatient. Please refer to outpatient regimen and most recent HbA1c above. * BSGs today have been 127-236 mg/dL. Appears to have received 4 mg IV Dexamethasone in the OR. Ordered 6 mg IV dexamethasone daily x 3 days starting tomorrow. Ordered a T2DM diet, will follow to see if patient tolerates. * Will start Novolog based on weight/stress of 3 with a one time basal dose of 0.2 units/kg. Reassess basal in the AM. PLAN FOR INPATIENT GLYCEMIC CONTROL: * Hold outpatient oral diabetes medications * Basal insulin * Lantus 25 units SC x 1 dose this morning * will re-evaluate tomorrow morning * Bolus insulin * NovoLog per scale ACHS or Q6hrs while NPO * Goal Range: Low 110 mg/dL - High 140 mg/dL * Correction Factor: 15 mg/dL/unit * Nutritional / Prandial insulin per carb ratio of 1 unit per 3 grams CHO consumed
--- NOTE | 2024-01-06 15:23 | Hospitalist Progress Note ---
Date of Service January 06, 2024 Assessment & Plan (1) Neurogenic claudication due to lumbar spinal stenosis: (2) Diabetes mellitus, type 2: (3) Hyperlipidemia: (4) Hypertension: Plan Neurogenic claudication with lumbar spinal stenosis s/p L1-L5 decompression and fusion of L1-2 POD 0- further management including DVT ppx, diet, activities, pain management and disposition per primary team Acute blood loss anemia: Secondary to perioperative blood loss along with dilutional component. Baseline Hgb 12.5, post op 10.1, 550 cc EBL, >500 cc GERMAN drain. Monitor labs in AM. Patient with no signs and symptoms of anemia. DM-2- Hold home antidiabetics. Glycemic pharmacist consulted by primary team. HTN- continue norvasc and lisinopril. Follow labs in am Tobacco abuse- recommended quitting. Continue nicoderm patch CKD- follow up labs in am DVT ppx- per primary team Dispo- per primary team Admission and Anticipated Discharge Date Admission Date: January 05, 2024 Subjective Patient was seen and examined at bedside. Patient was sitting up in chair, on room air, resting comfortably, not in any acute distress. Patient reports improvement in his BLE radicular symptoms, reports operative site pain under control. Reports eating okay. Denies any other review of symptoms. Physical Exam Physical Exam: General: Lying comfortably in bed, not in distress, on room air HEENT: EOMI, LEOLA, MMM Chest: Clear breath sounds bilaterally, no wheezes or crackles CVS: Regular rate and rhythm, normal heart sounds, no murmur Abdomen: Soft, non tender, not distended, normal bowel sounds Neuro: Awake, alert, oriented, conversing well, non focal Extremities: No edema Skin: Incision site covered with dressing, GERMAN drain with sanguineous output Raymundo with clear urine Results & Data Results & Data Vital Signs (Past 12 Hours) Vital Signs Temp Pulse Resp BP Pulse Ox O2 Del Method 01/06/24 14:14 36.7 C 75 16 149/77 H 96 Room Air 01/06/24 11:46 36.6 C 73 16 125/71 95 Room Air 01/06/24 07:43 98 Room Air 01/06/24 07:40 Room Air 01/06/24 07:22 36.3 C L 72 16 148/75 H 88 L Room Air 01/06/24 04:25 36.4 C L 74 18 148/67 H 96 Room Air
[2024-01-07] MEDS ORDERED: INSULIN ASPART PER UNIT CHARGE SC SCH (04:00)
[2024-01-07 06:17] LABS: Hemoglobin 9.3 g/dl (14.0-18.0); Mean Corpuscular Hgb Conc 34.4 g/dL (32.0-36.0); Mean Corpuscular Volume 87.1 fL (80.0-100.0); Mean Platelet Volume 11.1 fL (9.4-12.4); Platelet Count 224 K/uL (130-400); White Blood Count 15.14 K/ul (4.8-10.8)
[2024-01-07 06:35] LABS: Calcium 8.8 mg/dl (8.6-10.3); Creatinine Clr Calc Pharmacy 62.9 ml/min; Est GFR (African American) 61.2 ml/min; Est GFR (Non-African American) 52.8 ml/min; Potassium 4.6 mmol/L (3.5-5.1)
[2024-01-07] MEDS: LANTUS PER UNIT CHARGE SQ SCH (08:30)
--- NOTE | 2024-01-07 12:15 | Orthopedic Progress Note ---
Date of Service January 07, 2024 Assessment & Plan (1) Neurogenic claudication due to lumbar spinal stenosis: Plan: At this time continue physical therapy monitor his GERMAN operatively discharge home tomorrow. Admission and Anticipated Discharge Date Admission Date: January 05, 2024 Subjective Back pain controlled leg symptoms markedly improved Physical Exam Physical Exam: Patient is in the chair at the bedside. Is comfortable. Skin strength testing. Results & Data Vital Signs (Past 12 Hours) Vital Signs Temp Pulse Pulse Resp BP Pulse Ox O2 Del Method 01/07/24 08:12 36.3 C L 67 16 124/68 96 Room Air 01/07/24 07:15 36.4 C L 64 16 158/76 H 99 Room Air Queries Orthopedic Spine Obesity: Yes
--- NOTE | 2024-01-07 13:56 | Pharmacy Report ---
Pharmacy Glycemic Short Note 2 - Date of Service January 07, 2024 - Glycemic Short BSG Results (Last 24 hours): 01/06/24 01/06/24 01/06/24 16:31 16:32 20:30 Glucose POC Glucose 265 H 265 H 307 H* 01/06/24 01/07/24 01/07/24 20:31 05:53 07:37 Glucose 189 H POC Glucose 324 H* 198 H 01/07/24 01/07/24 11:32 11:33 Glucose POC Glucose 244 H 221 H OUTPATIENT ANTIDIABETIC REGIMEN: * Glimepiride 2 mg PO BID * Metformin 850 mg PO BID * HbA1c: 6.4% (12/29/23) ASSESSMENT: 01/07/24: * Tomás received 84 units of insulin yesterday (25 were basal) * Fasting BSG this AM still above goal range, basal insulin increased by ~20% * BSGs still above goal range and increasing throughout the day, Novolog parameters tightened * Day 2/3 of IV dexamethasone 6mg 01/06/24 * Despite aggressive insulin initiation on admission, patient's BSGs have been elevated. Pt appears to be very sensitive to steroid-induced hyperglycemia. * Pt provided with another dose of Lantus this morning. Novolog parameters were adjusted to provide additional carb coverage. * Steroids have the most profound effect on post-prandial BSGs, which has certainly been evident in this patient. * Will continue to follow and adjust regimen as indicated. * Anticipate that insulin needs will decrease when steroids are discontinued. 01/05/24 * 73 yo M admitted on 01/05/24 postoperatively following a spinal surgery with Dr. Schaffer. Pharmacy has been consulted to assist with inpatient glycemic management. Patient is a Type 2 diabetic as an outpatient. Please refer to outpatient regimen and most recent HbA1c above. * BSGs today have been 127-236 mg/dL. Appears to have received 4 mg IV Dexamethasone in the OR. Ordered 6 mg IV dexamethasone daily x 3 days starting tomorrow. Ordered a T2DM diet, will follow to see if patient tolerates. * Will start Novolog based on weight/stress of 3 with a one time basal dose of 0.2 units/kg. Reassess basal in the AM. PLAN FOR INPATIENT GLYCEMIC CONTROL: * Hold outpatient oral diabetes medications * Basal insulin * Lantus 30 units SC Daily * Bolus insulin * NovoLog per scale ACHS or Q6hrs while NPO * Goal Range: Low 110 mg/dL - High 140 mg/dL * Correction Factor: 10 mg/dL/unit * Nutritional / Prandial insulin per carb ratio of 1 unit per 2.5 grams CHO consumed
--- NOTE | 2024-01-07 15:58 | Hospitalist Progress Note ---
Date of Service January 07, 2024 Assessment & Plan (1) Neurogenic claudication due to lumbar spinal stenosis: (2) Diabetes mellitus, type 2: (3) Hyperlipidemia: (4) Hypertension: Plan Neurogenic claudication with lumbar spinal stenosis s/p L1-L5 decompression and fusion of L1-2 POD 0- further management including DVT ppx, diet, activities, pain management and disposition per primary team Acute blood loss anemia: Secondary to perioperative blood loss along with dilutional component. Baseline Hgb 12.5, post op 10.1, 550 cc EBL, >750 cc GERMAN drain. Monitor labs in AM. Patient with no signs and symptoms of anemia. DM-2- Hold home antidiabetics. Glycemic pharmacist consulted by primary team. HTN- continue norvasc and lisinopril. Follow labs in am Tobacco abuse- recommended quitting. Continue nicoderm patch CKD- follow up labs in am DVT ppx- per primary team Dispo- per primary team Admission and Anticipated Discharge Date Admission Date: January 05, 2024 Subjective Patient was seen and examined at bedside. Patient was sitting up in chair, on room air, resting comfortably, not in any acute distress. Patient reports improvement in his BLE radicular symptoms, reports operative site pain under control. Reports eating okay. Denies any other review of symptoms. moving gas, has not moved bowel yet. Physical Exam Physical Exam: General: Lying comfortably in bed, not in distress, on room air HEENT: EOMI, LEOLA, MMM Chest: Clear breath sounds bilaterally, no wheezes or crackles CVS: Regular rate and rhythm, normal heart sounds, no murmur Abdomen: Soft, non tender, not distended, normal bowel sounds Neuro: Awake, alert, oriented, conversing well, non focal Extremities: No edema Skin: Incision site covered with dressing, GERMAN drain with sanguineous output Raymundo with clear urine Results & Data Results & Data Vital Signs (Past 12 Hours) Vital Signs Temp Pulse Pulse Resp BP Pulse Ox O2 Del Method 01/07/24 13:34 37.0 C 70 16 151/75 H 95 Room Air 01/07/24 12:39 37.1 C 71 15 176/74 H 94 Room Air 01/07/24 08:12 36.3 C L 67 16 124/68 96 Room Air 01/07/24 07:15 36.4 C L 64 16 158/76 H 99 Room Air
[2024-01-08 06:39] LABS: Hemoglobin 9.9 g/dl (14.0-18.0); Mean Corpuscular Hemoglobin 30.3 pg (25.0-34.0); Mean Corpuscular Hgb Conc 34.1 g/dL (32.0-36.0); Mean Corpuscular Volume 88.7 fL (80.0-100.0); Mean Platelet Volume 11.1 fL (9.4-12.4); Platelet Count 254 K/uL (130-400); RDW Coefficient of Variation 13.9 % (11.5-14.5); RDW Standard Deviation 44.8 fL (36.4-46.3); Red Blood Count 3.27 M/uL (4.70-6.10); White Blood Count 15.48 K/ul (4.8-10.8)
--- NOTE | 2024-01-08 08:12 | Discharge Summary ---
Date of Service January 08, 2024 Admission HPI Per Admitting Provider This is a 73-year-old male who presents with chronic persistent back and leg pain after failing course of nonoperative care is here for surgical invention. Principal Diagnosis Lumbar spinal stenosis with neurogenic claudication Discharge Data Allergies Allergy/AdvReac Type Severity Reaction Status Date / Time No Known Allergies Allergy Verified 01/05/24 08:05 Consultations 01/05/24 14:07 Consult Hospitalist Routine Procedures Performed Operation Date: 01/05/24 09:35 Actual Procedures p L1-L5 Decompression, fusion of L1-L2, Spinal Cord Monitoring(Not Applicable) - Reese Schaffer DO Ordered Studies 01/05/24 09:35 FL lumbar spine 2-3V Routine Hospital Course (1) Neurogenic claudication due to lumbar spinal stenosis: Plan Patient underwent multilevel lumbar compression fusion tolerates well was taken to orthopedic for postoperative. Postoperatively progressed appropriately. Marked improvement of his leg symptoms. GERMAN drain decreasing appropriate. Excellent strength testing. Subsidy discharged home. Discharge orders instructions from the chart for further review. Total Time Total Time Spent Total Time Spent (In Minutes): 20 minutes Discharge Plan Discharge Items Patient Disposition: Home - Self-Care Reason For Visit: Lumbar Pain, Spinal Stenosis of Lumbar Region with Discharge Diagnosis: Lumbar spinal stenosis with neurogenic claudication Activity: As commented below Non-emergency contact: Primary Care Provider Call non-emergency contact if: you have any medication questions Follow-up/Referrals: Rolando Moura DO [Primary Care Provider] - Diet: Regular Addtl Attending Provider Instructions: ACTIVITY RECOMMENDATIONS: SELF CARE INSTRUCTIONS AFTER THORACIC/LUMBAR FUSIONS 1. You may walk to your tolerance. It is good exercise for your legs and back. Expect some back and intermittent leg aches and pains. 2. You may perform "counter-top" level activities (make a sandwich, lucho with a project, etc.). 3. No bending or lifting of more than 10 pounds or back twisting of any nature (roll like a log when turning in bed). 4. You may ride in a car for 20-30 minutes at a time. No driving until after your first visit with your doctor. 5. Frequent changes of position and restricting sitting to 30 minutes at a time will help limit the amount of back spasms and stiffness you may experience. 6. You may discontinue the use of ambulatory aids (cane, crutches, etc.) once your strength and confidence allow. 7. You may cellophane bag machine operator the shower and let water strike your incision when you arrive home at least once daily. Do not take a tub bath, sit in a hot tub or go into a swimming pool until after your first recheck in the office. SPECIAL CARE INSTRUCTIONS: VERY IMPORTANT TO READ AND REVIEW A. Your surgical incision has been closed with a cosmetic suture under the skin that will dissolve in about 6 weeks. In 14 days, you can use a pair of clean scissors and cut the suture that is left outside of the skin at the ends of your incision. 1. The small skin tapes can be removed 7 days after surgery if they have not fallen off by that point. 2. You may keep the wound open to air as much as possible to promote healing after post-op day number 5 unless told otherwise by your doctor. 3. If you think the wound looks like it is becoming infected (redness or worsening drainage) and/or you are experiencing fever, chill or worsening back pain and muscle spasms, contact the office so that we may evaluate you as soon as possible. B. Complications are uncommon, but please contact us if you have any signs or s ymptoms of: 1. wound infection (fever higher than 102.5 degrees F, redness, separation of wound, drainage, or increasing pain from the incision) 2. blood clots in legs (pain, swelling, redness and warmth in legs) 3. urinary tract infection (fever higher than 102.5 degrees F, burning upon urination or increased frequency of urination) 4. nerve problems (inability to walk on your toes or heels, numbness, loss of bowel or bladder control) 5. any other symptoms that concern you C. Please call the office at if you have any concerns or questions about your operation or recovery. D. No smoking! Smoking drastically decreases the chance of a solid fusion. E. Do not take any anti-inflammatory medications (Indocin, Advil, Motrin, Aspirin, Naprosyn, etc.) as these may inhibit the chance of a solid fusion. Tylenol is okay to take for pain. MANAGING PAIN AFTER SPINAL SURGERY 1. Narcotic medication is intended for short-term use and will be provided for surgical pain. Surgical pain usually lasts for a period of 4-6 weeks. Narcotic medication includes Percocet, Vicodin, Darvocet, Tylenol #3 or Lortab. 2. Longer-term pain is more appropriately treated with non-narcotic medication such as Tylenol ES. 3. Muscle spasm is not appropriately treated with narcotics. Muscle relaxers such as Soma, Flexeril or Skelaxin can be used along with Tylenol ES. 4. Remember that we all live with some "aches and pains". This is not unusual or uncommon after an injury or as we get older. a. Back pain is expected and may include muscle spasms for 4 to 6 weeks after surgery. The pain should gradually improve. If the pain worsens for no apparent reason, please contact the office. b. Intermittent leg pain may also be experienced and should not be concerned about unless it worsens for no apparent reason. If so, please contact the office. 5. We will provide appropriate medication within the normal guidelines of their prescribed use. We will also be very cautious and aware of potential abuse and extended duration of patients' medication needs. a. Pain medications are for your comfort and to assist with sleep and rest so that the tissue can heal. They are not provided in order to return to normal activity and should not be used through the day. To do so or worsening pain at night can result from ongoing tissue damage and development of tolerance to the prescribed medicine. 6. Please allow 2-3 days to process refills. Prescriptions will not be mailed but must be picked up at the office. FOLLOW UP VISIT: Keep your scheduled follow-up appointment. Any questions, please call the office at . Pending Studies at Discharge: No Stand-Alone Forms: My [facility] [employer], Smoking Cessation Medications and DC Order Prescriptions: New tramadol 50 mg tablet 50 mg PO Q6H PRN (Reason: pain, moderate) Qty: 30 0RF oxycodone 5 mg tablet 5 mg PO Q6H PRN (Reason: pain) Qty: 30 0RF Continued atorvastatin 40 mg Tablet 40 mg PO HS ascorbic acid (vitamin C) [Vitamin C] 1,000 mg Tablet 1 g PO QAM amlodipine 5 mg Tablet 5 mg PO QAM glimepiride 2 mg Tablet 2 mg PO BID Rx Instructions: administer with breakfast lisinopril 40 mg Tablet 40 mg PO QAM cholecalciferol (vitamin D3) [Vitamin D3] 50 mcg (2,000 unit) Capsule 50 mcg PO HS Kerendia 10 mg Tablet 10 mg PO QAM aspirin 81 mg Capsule 81 mg PO HS metformin 850 mg Tablet 850 mg PO BID Ocuvite Adult 50 Plus 250 mg (90 mg-160 mg) Capsule 1 cap PO DAILY Discharge Orders: Discharge Order (Routine); Ordered 01/08/24 Ordered By: Reese Schaffer Admission Data Admit Date/Time: 01/05/24 12:02 Attending Provider: Reese Schaffer Admit Provider: Reese Schaffer Primary Care Provider: Rolando Moura Other Providers: Dana Oconnor
--- NOTE | 2024-01-08 10:40 | Hospitalist Progress Note ---
Date of Service January 08, 2024 Assessment & Plan (1) Neurogenic claudication due to lumbar spinal stenosis: (2) Diabetes mellitus, type 2: (3) Hyperlipidemia: (4) Hypertension: Plan Neurogenic claudication with lumbar spinal stenosis s/p L1-L5 decompression and fusion of L1-2 POD 0- further management including DVT ppx, diet, activities, pain management and disposition per primary team Acute blood loss anemia: Secondary to perioperative blood loss along with dilutional component. Baseline Hgb 12.5, post op 10.1, 550 cc EBL, >850 cc GERMAN drain. Monitor labs in AM. Patient with no signs and symptoms of anemia. DM-2- Hold home antidiabetics. Glycemic pharmacist consulted by primary team. HTN- continue norvasc and lisinopril. Follow labs in am Tobacco abuse- recommended quitting. Continue nicoderm patch CKD- follow up labs in am DVT ppx- per primary team Dispo- per primary team Admission and Anticipated Discharge Date Admission Date: January 05, 2024 Subjective Patient was seen and examined at bedside. Patient was sitting up in chair, on room air, resting comfortably, not in any acute distress. Patient reports improved BLE radicular symptoms, reports operative site pain under control. Reports eating okay. Denies any other review of symptoms. moving gas, has not moved bowel yet. No abdominal pain. Physical Exam Physical Exam: General: Lying comfortably in bed, not in distress, on room air HEENT: EOMI, LEOLA, MMM Chest: Clear breath sounds bilaterally, no wheezes or crackles CVS: Regular rate and rhythm, normal heart sounds, no murmur Abdomen: Soft, non tender, not distended, normal bowel sounds Neuro: Awake, alert, oriented, conversing well, non focal Extremities: No edema Skin: Incision site covered with dressing. Results & Data Results & Data Vital Signs (Past 12 Hours) Vital Signs Temp Pulse Pulse Resp BP Pulse Ox O2 Del Method 01/08/24 08:41 71 65 18 95 01/08/24 08:00 Room Air 01/08/24 07:46 36.3 C L 65 18 159/65 H 95 Room Air
== END 2024-01-08 12:59 | disposition home or self-care (01) | DRG 454 ==
LOC: ASU 07:29 → 3E 12:02